=== PATIENT | female | born 1995 | race Two or more races ===

== ENCOUNTER 2020-05-08 08:24 | Emergency (ER) | payer OTHER ==
[~2020-05-08] VITALS: Ht 167.6 cm; Wt 75.3 kg
[~2020-05-08 08:24] MED LIST: AMOX1TAB12 PO; ANTICONCEPTIVOS PO; CONEX TABLET1 EACH PO; GILTUSS TR TAB1 EACH; GILTUSS TR TAB1 EACH PO; INTESTINEX680 MG PO; SPRINTEC1 TAB; ZITHROMAX200 MG PO
[2020-05-08] MEDS ORDERED: ZYRTEC10 M3 PO (08:33)
[2020-05-08] MEDS ORDERED: INTESTINEX680 M2 PO (12:12)
[2020-05-08] MEDS ORDERED: CIPRO500 MG PO (12:12)
[2020-05-08] MEDS ORDERED: FLAGYL500MG PO (12:12)
[2020-05-08] MEDS ORDERED: PEPCID AC20 MG PO (12:12)
== END 2020-05-08 14:08 | disposition home or self-care (01) ==
LOC: ER 08:24
DX: K52.9 Noninfective gastroenteritis and colitis, unspecified (principal); R10.84 Generalized abdominal pain; Z03.818 Encounter for observation for suspected exposure to other biological agents ruled out

== ENCOUNTER 2025-02-06 14:40 | Emergency (ER) | payer OTHER ==
[~2025-02-06] VITALS: Ht 167.6 cm; Wt 84.8 kg
[~2025-02-06 14:40] MED LIST changes: +CIPRO500 MG PO; +FLAGYL500MG PO; +INTESTINEX680 M2 PO; +PEPCID AC20 MG PO; +ZYRTEC10 M3 PO
[2025-02-06] MEDS ORDERED: RINGERS SOLUTION,LACTATED 1,000 ML IV STA (15:43)
[2025-02-06 16:42] LABS: BASO % 0.6 % (0.1-1.2); EOS # 0.09 (0.04-0.54); EOS % 0.6 % (0.7-7.0); LYMPH # 3.04 (1.18-3.74); LYMPH % 21.2 % (19.3-53.1); MEAN PLATELET VOLUME 10.20 fl (9.4-12.4); MONO # 0.80 (0.24-0.82); MONO % 5.6 % (4.7-12.5); NEUT # 10.30 (1.56-6.13); NEUT % 71.7 % (34.0-71.1); RED CELL DISTRIBUTION WIDTH 12.9 % (11.6-14.4)
[2025-02-06 17:11] LABS: BUN CREA RATIO 16.0 (7.0-25.0); CREATININE SERUM 0.7 mg/dL (0.55-1.02); GFR 98.93; GLUCOSE FASTING 97.0 mg/dL (65-100); HCG QUANTITATIVE 5.0 mUI/mL (1-3); OSMOLALITY SERUM 279.0 MOSM/KG (275-295)
[2025-02-06 17:13] LABS: URINE BILIRRUBIN NEGATIVE (NEGATIVE); URINE BLOOD LARGE; URINE GLUCOSE NEGATIVE (NEGATIVE); URINE KETONE NEGATIVE (NEGATIVE); URINE LEUKOCYTE NEGATIVE; URINE NITRATE NEGATIVE; URINE PROTEIN NEGATIVE (NEGATIVE); URINE UROBILINOGEN 0.2 E.U./dl
[2025-02-06 17:49] LABS: URINE APPEARANCE SL CLOUDY; URINE COLOR YELLOW
[2025-02-06 17:52] LABS: URINE BACTERIA FEW; URINE EPITHELIAL CELLS 0-4 /HPF
== END 2025-02-06 22:00 | disposition home or self-care (01) ==
LOC: ER 14:45
PROVIDERS: General Practice
DX: O03.9 Complete or unspecified spontaneous abortion without complication (principal)